=== PATIENT | female | born 1995 ===

== ENCOUNTER 2022-12-27 19:09 | Inpatient (IN) | payer BC ==
[2022-12-27] MEDS ORDERED: ePHEDrine 50 MG/ML SDV IVPUSH PRN ×2 (20:14)
[2022-12-27] MEDS ORDERED: Phenylephrine HCl 0.5 MG/5 ML AMP IVPUSH PRN (20:14)
[2022-12-27] MEDS ORDERED: Ropivacaine HCl/PF 400 MG in Premix Bag 1 BAG EPIDUR SCH (20:15)
[2022-12-27] MEDS ORDERED: Sodium Chloride 0.9% 2.5 ML Syringe FLUSH PRN (20:22)
[2022-12-27] MEDS ORDERED: Carboprost Tromethamine 250 MCG/1 mL Vial IM PRN (20:22)
[2022-12-27] MEDS ORDERED: Lidocaine 1% 50 ML MDV INJECT PRN (20:22)
[2022-12-27] MEDS ORDERED: Sodium Chloride 0.9% 10 ML Syringe FLUSH PRN (20:22)
[2022-12-27] MEDS ORDERED: Misoprostol 200 MCG Tab PO PRN (20:22)
[2022-12-27] MEDS ORDERED: Tranexamic Acid 1,000 MG in Sodium Chloride 0.9% 100 ML IV PRN (20:22)
[2022-12-27] MEDS ORDERED: Terbutaline 1 MG/ML SDV SUBCUT PRN (20:22)
[2022-12-27] MEDS ORDERED: Sodium Chloride 0.9% 20 ML SDV IV PRN (20:22)
[2022-12-27] MEDS ORDERED: Ondansetron 4 MG/2 ML SDV IVPUSH PRN (20:22)
[2022-12-27] MEDS ORDERED: Methylergonovine 0.2 MG/1 ML Amp IM PRN (20:22)
[2022-12-27] MEDS ORDERED: Butorphanol 1 MG/ML SDV IVPUSH PRN (20:22)
[2022-12-27] MEDS ORDERED: Water For Irrigation,Sterile 1,000 ML Container IRR PRN (20:22)
[2022-12-27] MEDS ORDERED: Oxytocin/0.9 % Sodium Chloride 30 UNIT/500 ML BAG IV SCH ×2 (20:30)
[2022-12-27] MEDS ORDERED: Ampicillin 2 GM in Sodium Chloride 0.9% 100 ML IV ONE (21:00)
[2022-12-27] MEDS: Sodium Chloride 0.9% 1,000 ML IV SCH (21:00)
[2022-12-27 21:14] LABS: HEMATOCRIT 37.1 % (36.0-46.0); HEMOGLOBIN 12.7 g/dL (12.0-16.0); MEAN CORPUSCULAR HEMOGLOBIN 30.5 pg (27.0-32.0); MEAN CORPUSCULAR HGB CONC 34.2 g/dL (31.0-37.0); MEAN PLATELET VOLUME 9.9 fL (7.40-12.00); RED BLOOD CELL COUNT 4.17 M/uL (4.30-5.90); WHITE BLOOD CELL COUNT,WBC 13.37 K/uL (4.0-11.0)
[2022-12-28] MEDS: Ampicillin 1 GM in Sodium Chloride 0.9% 50 ML IV SCH ×4 (01:10→13:24)
[2022-12-28] MEDS: Sodium Chloride 0.9% 1,000 ML IV SCH ×3 (03:45→13:25)
[2022-12-28] MEDS ORDERED: Lidocaine 2% with EPINEPHrine 1:200,000 20 ML SDV ONE (08:41)
[2022-12-28] MEDS ORDERED: Dexmedetomidine 200 MCG/2 ML SDV ONE (08:41)
[2022-12-28] MEDS ORDERED: Docusate Sodium 100 MG Cap PO PRN (15:58)
[2022-12-28] MEDS ORDERED: Ibuprofen 400 MG Tab PO PRN (15:58)
[2022-12-28] MEDS ORDERED: Benzocaine/Menthol 20%-0.5% Spray 78 GM Cannister TOP PRN (15:58)
[2022-12-28] MEDS ORDERED: Witch Hazel Medicated Pads 40/Jar TOP PRN (15:58)
[2022-12-28] MEDS ORDERED: Bisacodyl 10 MG Supp RECTAL PRN (15:58)
[2022-12-28] MEDS ORDERED: Lanolin 100% Cream 7 GM Tube TOP PRN (15:58)
[2022-12-28] MEDS ORDERED: Ibuprofen 800 MG Tab PO PRN (15:58)
[2022-12-28] MEDS ORDERED: Acetaminophen 500 MG Tab PO PRN ×2 (15:58)
[2022-12-28 16:21] LABS: PH,UMBILICAL ARTERIAL 7.203 (7.18-7.38); PH,UMBILICAL VENOUS 7.251 (7.25-7.45)
[2022-12-29 05:54] LABS: HEMATOCRIT 33.8 % (36.0-46.0); HEMOGLOBIN 11.5 g/dL (12.0-16.0)
== END 2022-12-29 17:55 | disposition home or self-care (01) | DRG 560 ==
LOC: MW.OBCHECK 19:09 → MW.OB 19:10 → MW.OBCHECK 20:21 → MW.OB 20:22 → OBSVTOIN 12-28 15:42 → MW.OB 12-28 18:55
PROVIDERS: ADMIT Obstetrics & Gynecology; ATTEND Obstetrics & Gynecology
PROC: 10E0XZZ Delivery of Products of Conception, External Approach (ICD-10-PCS; principal; 2022-12-28)
PROC: 3E033VJ Introduction of Other Hormone into Peripheral Vein, Percutaneous Approach (ICD-10-PCS; 2022-12-28)
PROC: 3E0R3BZ Introduction of Anesthetic Agent into Spinal Canal, Percutaneous Approach (ICD-10-PCS; 2022-12-28)
PROC: 00HU33Z Insertion of Infusion Device into Spinal Canal, Percutaneous Approach (ICD-10-PCS; 2022-12-28)
DX: O42.02 Full-term premature rupture of membranes, onset of labor within 24 hours of rupture (principal); O24.420 Gestational diabetes mellitus in childbirth, diet controlled; O99.824 Streptococcus B carrier state complicating childbirth; O99.214 Obesity complicating childbirth; Z37.0 Single live birth; Z3A.39 39 weeks gestation of pregnancy
CPT/HCPCS: 36415; 51702; 59025; 59409; 82803; 82947; 84112; 85014; 85018; 85027; 86592; 86850; 86900; 86901; A9270-GY; J0290; J2590; J3490; J7030